=== PATIENT | female | born 1970 | race Caucasian/White ===

== ENCOUNTER 2016-09-28 07:29 | Day surgery (SDC) | payer OTHER ==
[~2016-09-28 07:29] MED LIST: IV START KIT ONE; LACTATED RINGERS 1,000 ML IV SCH; LIDOCAINE 2% (PRES FREE) 5 ML VIAL ONE; PROPOFOL 40 ML IV ONE
[2016-09-28] MEDS ORDERED: MIDAZOLAM HCL 1 MG/ML 2ML VIAL ONE (07:58)
[2016-09-28 12:48] LABS: HELICOBACTER PYLORII DETECTION NEGATIVE (NEGATIVE)
--- NOTE | 2016-10-02 09:31 | SURGPATH ---
[facility] [address] [place] [id number] Patient Name: CRISTINA REDDY MR#: [id number] : 1970 Gender: F Specimen #: [id number] Collected: 09/28/2016 Received: 09/29/2016 Reported: 10/02/2016 Submitting Phys: ANDRIY AMAYA Copy To Phys: [facility] Clinical History / Pre-Operative Diagnosis: HEARTBURN; HISTORY OF COLON POLYPS; FAMILY HISTORY COLON CA; RULE OUT GIARDIA, CELIAC SPRUE AND GASTRITIS Specimen Source / Surgical Procedure Performed: #1-DUODENAL BIOPSY; #2-ANTRAL BIOPSY; #3-SIGMOID POLYP AT 20 CM Interpretation: 1. DUODENUM, BIOPSY: - NO PATHOLOGIC ABNORMALITY 2. ANTRUM, BIOPSY: - NO PATHOLOGIC ABNORMALITY 3. SIGMOID POLYP AT 20 CM, BIOPSY: - PEDUNCULATED TUBULAR ADENOMA - COMPLETELY EXCISED Electronically Signed Out David Simpson M.D. Gross Description: #1 The specimen is received in a formalin filled container labeled with the patient's name and "duodenal biopsy". Two camacho biopsies are 0.3 and 0.5 cm. Totally embedded in cassette #1. #2 The specimen is received in a formalin filled container labeled with the patient's name and "antral biopsy". Two camacho biopsies are 0.4 and 0.5 cm. Totally embedded in cassette #2. #3 The specimen is received in a formalin filled container labeled with the patient's name and "sigmoid polyp at 20 cm". A nodular, polypoid red-camacho biopsy is 1.0 x 0.7 x 0.5 cm. The base is inked. Bisected. Totally embedded in cassette #3. Leonides Cannon PChaka Microscopic Description: Microscopic performed. 1: 30066 2: 79434 3: 09807 D12.5 R12
== END 2016-09-28 09:00 | disposition home or self-care (01) ==
LOC: SDC 07:29
PROVIDERS: ATTEND Internal Medicine Gastroenterology
PROC: 0DB98ZX Excision of Duodenum, Via Natural or Artificial Opening Endoscopic, Diagnostic (ICD-10-PCS; principal; 2016-09-28)
PROC: 0DB68ZX Excision of Stomach, Via Natural or Artificial Opening Endoscopic, Diagnostic (ICD-10-PCS; 2016-09-28)
PROC: 0DBN8ZX Excision of Sigmoid Colon, Via Natural or Artificial Opening Endoscopic, Diagnostic (ICD-10-PCS; 2016-09-28)
DX: D12.5 Benign neoplasm of sigmoid colon (principal); K29.70 Gastritis, unspecified, without bleeding; K29.80 Duodenitis without bleeding; Z12.11 Encounter for screening for malignant neoplasm of colon; Z80.0 Family history of malignant neoplasm of digestive organs; Z86.010 Personal history of colon polyps; F32.9 Major depressive disorder, single episode, unspecified; F41.9 Anxiety disorder, unspecified; I10 Essential (primary) hypertension; M79.1 Myalgia; G89.29 Other chronic pain; Z79.899 Other long term (current) drug therapy
CPT/HCPCS: 45385; 43239; 87081; J2250; J7120